=== PATIENT | male | born 1980 | race Caucasian/White ===

== ENCOUNTER 2018-02-18 10:16 | Outpatient (CLI) | payer OTHER ==
--- NOTE | 2018-02-20 01:22 | Magnetic Resonance Report ---
FINAL REPORT PROCEDURE: MR UE JOINT LT WO/W CON TECHNIQUE: Magnetic resonance imaging of the LEFT arm was performed using standard pulse sequences b efore and after the IV injection of paramagnetic contrast. HISTORY: WOUND OVER LEFT WRIST, COMPARISON: No prior studies are available for comparison. FINDINGS: Musculature: There is hardware artifact obscuring the distal ulna and surrounding soft tissues. The r adius is intact. The carpal bones and proximal metacarpal bones are intact. Mass lesions: Normal. Fluid collections: Normal. Neurovascular bundles: Normal. Abnormal enhancement: None. IMPRESSION: There is hardware artifact obscuring the distal ulna and surrounding soft tissues. The radius is inta ct. The carpal bones and proximal metacarpal bones are intact. Flexor and extensor tendons are intact. There is no soft tissue mass or fluid collection.
== END 2018-02-18 10:17 | disposition home or self-care (01) ==
LOC: MRI 10:16
PROVIDERS: ATTEND Family Medicine
DX: S61.502A Unspecified open wound of left wrist, initial encounter (principal); X58.XXXA Exposure to other specified factors, initial encounter; Y93.89 Activity, other specified; Y92.89 Other specified places as the place of occurrence of the external cause; Y99.8 Other external cause status